=== PATIENT | female | born 1970 | race Caucasian/White ===

== ENCOUNTER 2025-05-21 18:58 | Emergency (ER) | payer OTHER ==
[~2025-05-21] VITALS: Ht 157.5 cm; Wt 61.4 kg
[2025-05-21 19:29] VITALS: TEMP 98.2
[2025-05-21 19:45] LABS: GLUCOMETER DEV NAME(LOC) ERT.7; GLUCOSE,POINT OF CARE 356 MG/DL (70-110)
[2025-05-21 20:04] LABS: PLATELET COUNT (AUTO) 241 K/uL (150-450); RED BLOOD CELL COUNT(AUTO) 4.66 MIL/uL (4.00-5.20); RED CELL DISTRIBUTION WIDTH 13.4 % (11.5-14.5); WHITE BLOOD COUNT (AUTO) 5.5 K/uL (4.5-11.0)
[2025-05-21 20:09] LABS: CALCIUM, TOTAL 8.8 mg/dL (8.8-10.5); CREATININE 0.59 mg/dL (0.60-1.30); GLOMERULAR FILTR. RATE CALC > 60 mL/min (>60); GLUCOSE,RANDOM 353 mg/dL (70-110); SODIUM SERUM 135 mmol/L (136-145); UREA NITROGEN, BLOOD 11 mg/dL (7-18)
[2025-05-21] MEDS: INSULIN REGULAR, HUMAN 100 UNITS/ML IVP ONE (21:49)
[2025-05-21 21:50] LABS: GLUCOMETER DEV NAME(LOC) ER.7; GLUCOSE,POINT OF CARE 318 MG/DL (70-110)
[2025-05-21] MEDS: SODIUM CHLORIDE 0.9% 1,000 ML IV ONE (21:50)
[2025-05-21 22:11] LABS: TROPONIN I-HIGH SENSITIVITY 21 ng/L (<51)
[2025-05-22] VITALS: BP 138/85; PULSE 63; RESP 18; O2SAT 99
[2025-05-22 00:41] LABS: APPEARANCE,URINE HAZY (CLEAR); GLUCOSE, URINE (UA) >=1000 mg/dL (NEGATIVE); LEUKOCYTE ESTERASE ,URINE MODERATE (NEGATIVE); NITRATE,URINE NEGATIVE (NEGATIVE); OCCULT BLOOD,URINE NEGATIVE (NEGATIVE); SPECIFIC GRAVITIY, URINE 1.023 (1.003-1.030)
[2025-05-22 00:55] LABS: SQUAMOUS EPITHELIAL CELL,UR Moderate /LPF (None Seen)
[2025-05-22 01:01] LABS: GLUCOMETER DEV NAME(LOC) ER.7; GLUCOSE,POINT OF CARE 251 MG/DL (70-110)
== END 2025-05-22 00:59 ==
LOC: EMS 18:58
DX: E11.65 Type 2 diabetes mellitus with hyperglycemia (principal); Z79.899 Other long term (current) drug therapy
CPT/HCPCS: 99284; 96374; 96361; 80048; 81001; 82009; 82962 ×2; 84484; 85025; 87077; 87086; 36415; 93005; J1815; J7030